=== PATIENT | female | born 1995 | race Caucasian/White ===

== ENCOUNTER 2019-06-09 16:39 | Emergency (ER) | payer MEDICAID, OTHER ==
[~2019-06-09] VITALS: Ht 162.6 cm; Wt 104.0 kg
[~2019-06-09 16:39] MED LIST: CARI350T PO; CEPH500T PO; FAMO-128 PO; ONDA4TAB12 PO; OXYC-145 PO
[2019-06-09] MEDS ORDERED: METO-292 PO (17:07)
[2019-06-09] MEDS ORDERED: DOXY1TAB3 PO ×2 (17:07→18:39)
[2019-06-09] MEDS ORDERED: ONDA4TAB6 PO (17:07)
[2019-06-09 17:20] LABS: BASOPHILS # (AUTO) 0.1 X10'3 (0-0.2); BASOPHILS % (AUTO) 0.6 % (0-1); EOSINOPHILS % (AUTO) 0.3 % (0-6); HEMOGLOBIN 14.5 g/dl (12.0-16.0); LYMPHOCYTES # (AUTO) 2.9 X10'3 (1.1-4.8); LYMPHOCYTES % (AUTO) 19.9 % (21-51); MEAN CORPUSCULAR HEMOGLOBIN 28.7 PG (27.0-31.0); MEAN CORPUSCULAR HGB CONC 34.6 g/dL (33.0-36.5); MEAN CORPUSCULAR VOLUME 83.1 FL (78-98); MONOCYTES # (AUTO) 0.6 X10'3 (0-0.9); NEUTROPHILS # (AUTO) 10.8 X10'3 (1.8-7.7); NEUTROPHILS % (AUTO) 75.2 % (42-75); PLATELET COUNT 281 X10'3 (140-440); RED BLOOD COUNT 5.05 X10'6 (4.20-5.60); RED CELL DISTRIBUTION WIDTH 13.2 % (11.5-14.5); WHITE BLOOD COUNT 14.3 X10'3 (4.5-11.0)
[2019-06-09 17:23] LABS: CLARITY,URINE SLIGHTLY CLOUDY (Clear); COLOR,URINE YELLOW (Yellow); GLUCOSE, URINE NEGATIVE (Neg); KETONES,URINE 40 mg/dl (Neg); LEUKOCYTE ESTERASE ,URINE MODERATE (Neg); NITRITES, URINE NEGATIVE (Neg); OCCULT BLOOD,URINE TRACE-INTACT (Neg); PROTEIN,URINE NEGATIVE (Neg); UROBILINOGEN,URINE 0.2 E.U/dL (0.2-1.0)
[2019-06-09 17:27] LABS: UA COLLECTION TYPE CLN CATCH MIDSTREAM
--- NOTE | 2019-06-09 17:27 | NUR ---
MEDICAL RECORD RELEASE HAS BEEN FAXED TO [facility]
[2019-06-09 17:28] LABS: RBC,URINE 0-2 /HPF (0-2); WBC,URINE TNTC /HPF (0-4)
[2019-06-09 17:29] LABS: ALANINE AMINOTRANSFERASE 30 U/L (12-78); ALBUMIN 3.7 G/DL (3.4-5.0); ALBUMIN/GLOBULIN RATIO 0.8 (1.1-1.5); ALKALINE PHOSPHATASE 85 IU/L (46-116); ANION GAP 16 (8-16); ASPARTATE AMINO TRANSFERASE 18 U/L (10-37); BILIRUBIN,TOTAL 0.5 MG/DL (0.1-1.0); BLOOD UREA NITROGEN 12 MG/DL (7-18); BUN/CREATININE RATIO 16.7 (6.6-38.0); CALCIUM 9.3 MG/DL (8.5-10.1); CHLORIDE 99 MMOL/L (99-107); CREATININE 0.72 MG/DL (0.40-0.90); GLUCOSE 85 MG/DL (70-104); POTASSIUM 3.6 MMOL/L (3.5-5.1); SODIUM 134 MMOL/L (135-145); TOTAL CARBON DIOXIDE 19.3 MMOL/L (24-32); TOTAL PROTEIN 8.2 G/DL (6.4-8.2); eGFR > 90 ML/MIN
[2019-06-09 17:29] LABS: BACTERIA,URINE 3+ /HPF (Neg); MUCUS STRANDS NONE SEEN /LPF (Neg); SQUAMOUS EPITHELIAL CELL,UR FEW /LPF (FEW)
[2019-06-09 17:50] LABS: LIPASE 83 U/L (73-393)
[2019-06-09 17:51] LABS: BETA HCG,QUANTITATIVE 82534 mIU/ml
--- NOTE | 2019-06-09 18:24 | NUR ---
PT UPSET, WANTS IV FLUIDS, NO NEW ORDERS BY DR. RAMIREZ IF ORTHO STATICS WITHIN NORMAL LIMITS.
[2019-06-09] MEDS ORDERED: normal saline 1000ML IV soln IVB ONE (18:40)
[2019-06-09] MEDS ORDERED: dextrose 5%-normal saline 1,000 ML IV ONE ×2 (18:45)
--- NOTE | 2019-06-09 19:00 | NUR ---
Patient is warm and dry. Establishing IV with bolus. Patient denies discomfort. Some nausea without emesis. IV to be changed from NS to D5/NS, a one litre bolus. Patient is cooperative and in no distress.
--- NOTE | 2019-06-09 19:28 | NUR ---
IV is established and running. Patient tollerated well.
[2019-06-09 20:35] VITALS: BP 115/51
--- NOTE | 2019-06-15 08:57 | NUR ---
PT CALLED X3 REGARDING LAB RESULTS, NO ANSWER AND UNABLE TO LEAVE [facility] [place]. LETTER SENT TO PT'S LISTED ADDDRESS.
--- NOTE | 2019-06-23 17:44 | NUR ---
PT RECEIVED LETTER REGARDING LAB RESULTS AND CALLED BACK. PT NOTIFIED THAT SHE HAS A UTI REQUIRING ABX, MACROBID 100MG PO BID x7 DAYS. PT REGUESTED THAT ABX BE CALLED INTO [facility] IN [place]. RX FOR MACROBID CALLED INTO [facility] IN [place] PT REQUESTED
== END 2019-06-09 20:37 | disposition home or self-care (01) ==
LOC: ER 16:40
DX: O21.0 Mild hyperemesis gravidarum (principal); O99.611 Diseases of the digestive system complicating pregnancy, first trimester; K21.9 Gastro-esophageal reflux disease without esophagitis; Z87.442 Personal history of urinary calculi; Z90.49 Acquired absence of other specified parts of digestive tract; Z3A.10 10 weeks gestation of pregnancy; Z88.1 Allergy status to other antibiotic agents; Z88.8 Allergy status to other drugs, medicaments and biological substances; Z79.899 Other long term (current) drug therapy
CPT/HCPCS: 36415; 80053; 81001; 83690; 84702; 85025; 87077; 87088; 87186; 96360; 99284; J7042; 99283

== ENCOUNTER 2022-11-21 17:59 | Emergency (ER) | payer MEDICAID ==
[~2022-11-21] VITALS: Ht 162.6 cm; Wt 98.0 kg
[~2022-11-21 17:59] MED LIST changes: +DOXY1TAB3 PO; +METO-292 PO; +ONDA4TAB6 PO
[2022-11-21 20:30] VITALS: BP 122/91
[2022-11-21] MEDS ORDERED: diphenhydrAMINE 25mg capsule PO ONE (22:20)
[2022-11-21] MEDS ORDERED: famotidine 20mg tablet PO ONE (22:20)
[2022-11-21] MEDS ORDERED: FAMO-128 PO (22:24)
== END 2022-11-21 22:31 | disposition home or self-care (01) ==
LOC: ER 18:00
DX: L25.0 Unspecified contact dermatitis due to cosmetics (principal); K21.9 Gastro-esophageal reflux disease without esophagitis; Z87.442 Personal history of urinary calculi; Z88.1 Allergy status to other antibiotic agents; Z88.0 Allergy status to penicillin; Z79.899 Other long term (current) drug therapy; Z79.1 Long term (current) use of non-steroidal anti-inflammatories (NSAID); Z79.2 Long term (current) use of antibiotics; Z88.8 Allergy status to other drugs, medicaments and biological substances
CPT/HCPCS: 99283; Q0163

== ENCOUNTER 2022-11-24 06:33 | Emergency (ER) | payer MEDICAID ==
[~2022-11-24] VITALS: Ht 162.6 cm; Wt 95.0 kg
[2022-11-24 06:42] VITALS: BP 122/77
[2022-11-24] MEDS ORDERED: BENZ-38 PO (07:13)
[2022-11-24] MEDS ORDERED: AZIT250T2 PO (08:08)
== END 2022-11-24 07:47 | disposition home or self-care (01) ==
LOC: ER 06:34
DX: J02.9 Acute pharyngitis, unspecified (principal); K21.9 Gastro-esophageal reflux disease without esophagitis; Z87.442 Personal history of urinary calculi; Z90.49 Acquired absence of other specified parts of digestive tract; Z88.1 Allergy status to other antibiotic agents; Z88.0 Allergy status to penicillin; Z79.899 Other long term (current) drug therapy; Z79.2 Long term (current) use of antibiotics; Z79.1 Long term (current) use of non-steroidal anti-inflammatories (NSAID)
CPT/HCPCS: 87880; 99283

== ENCOUNTER 2024-01-08 02:51 | Emergency (ER) | payer MEDICAID ==
[~2024-01-08] VITALS: Ht 160 cm; Wt 106.8 kg
[2024-01-08] MEDS ORDERED: HYDR-3965 PO (04:20)
[2024-01-08] MEDS ORDERED: CLIN-197 PO (04:20)
[2024-01-08 04:39] VITALS: BP 128/84; PULSE 72; RESP 17; TEMP 97.7; O2SAT 98
== END 2024-01-08 04:40 | disposition home or self-care (01) ==
LOC: ER 02:51
DX: K02.9 Dental caries, unspecified (principal); K04.7 Periapical abscess without sinus; K21.9 Gastro-esophageal reflux disease without esophagitis; Z88.1 Allergy status to other antibiotic agents; Z88.0 Allergy status to penicillin; Z79.899 Other long term (current) drug therapy
CPT/HCPCS: 99283

== ENCOUNTER 2024-07-22 12:07 | Emergency (ER) | payer MEDICAID ==
[~2024-07-22] VITALS: Ht 160 cm; Wt 111.4 kg
[~2024-07-22 12:07] MED LIST changes: +ONDA-243 PO; -ONDA4TAB12 PO
[2024-07-22 12:19] VITALS: BP 129/80; PULSE 91; RESP 16; TEMP 98.5; O2SAT 98
[2024-07-22 12:52] LABS: BASOPHILS % (AUTO) 0.2 % (0-1); EOSINOPHILS # (AUTO) 0.1 X10'3 (0-0.9); EOSINOPHILS % (AUTO) 1.3 % (0-6); HEMATOCRIT 41.9 % (35.0-45.0); HEMOGLOBIN 14.5 g/dl (12.0-16.0); LYMPHOCYTES # (AUTO) 2.5 X10'3 (1.1-4.8); LYMPHOCYTES % (AUTO) 24.5 % (21-51); MEAN CORPUSCULAR HEMOGLOBIN 29.6 PG (27.0-31.0); MEAN CORPUSCULAR HGB CONC 34.6 g/dL (33.0-36.5); MEAN CORPUSCULAR VOLUME 85.3 FL (78-98); MEAN PLATELET VOLUME 7.9 FL (7.4-10.4); MONOCYTES # (AUTO) 0.3 X10'3 (0-0.9); MONOCYTES % (AUTO) 3.4 % (2-12); NEUTROPHILS # (AUTO) 7.2 X10'3 (1.8-7.7); NEUTROPHILS % (AUTO) 70.6 % (42-75); PLATELET COUNT 280 X10'3 (140-440); RED BLOOD COUNT 4.91 X10'6 (4.20-5.60); WHITE BLOOD COUNT 10.2 X10'3 (4.5-11.0)
[2024-07-22 13:05] LABS: ALANINE AMINOTRANSFERASE 35 U/L (12-78); ALBUMIN 3.9 G/DL (3.4-5.0); ALBUMIN/GLOBULIN RATIO 0.9 (1.1-1.5); ALKALINE PHOSPHATASE 70 IU/L (46-116); ANION GAP 13 (8-16); ASPARTATE AMINO TRANSFERASE 25 U/L (10-37); BILIRUBIN,TOTAL 0.3 MG/DL (0.1-1.0); BLOOD UREA NITROGEN 15 MG/DL (7-18); BUN/CREATININE RATIO 17.6 (10.0-20.0); CHLORIDE 104 MMOL/L (99-107); CREATININE 0.85 MG/DL (0.40-0.90); GLUCOSE 117 MG/DL (70-104); POTASSIUM 3.7 MMOL/L (3.5-5.1); SODIUM 137 MMOL/L (135-145); TOTAL CARBON DIOXIDE 20.5 MMOL/L (24-32); TOTAL PROTEIN 8.1 G/DL (6.4-8.2); eCRCL 81 ML/MIN; eGFR 79 ML/MIN
[2024-07-22 14:28] LABS: PROTHROMBIN TIME 10.9 SECONDS (9.0-12.0)
[2024-07-22 14:49] LABS: BILIRUBIN,URINE NEGATIVE (Neg); CLARITY,URINE CLEAR (Clear); COLOR,URINE YELLOW (Yellow); GLUCOSE, URINE NEGATIVE (Neg); KETONES,URINE NEGATIVE (Neg); LEUKOCYTE ESTERASE ,URINE TRACE (Neg); NITRITES, URINE NEGATIVE (Neg); OCCULT BLOOD,URINE NEGATIVE (Neg); PROTEIN,URINE NEGATIVE (Neg); UROBILINOGEN,URINE 0.2 E.U/dL (0.2-1.0)
[2024-07-22] MEDS ORDERED: dexamethasone sod phosphate 10mg/ml inj IM STA (14:52)
[2024-07-22] MEDS ORDERED: diphenhydrAMINE 50 mg/ml inj IM ONE (14:55)
[2024-07-22] MEDS ORDERED: famotidine 20mg tablet PO ONE (14:55)
[2024-07-22 14:58] LABS: SQUAMOUS EPITHELIAL CELL,UR FEW /LPF (FEW); UA COLLECTION TYPE NON-SPECIFIED
[2024-07-22 14:59] LABS: BACTERIA,URINE FEW /HPF (Neg); RBC,URINE 0-2 /HPF (0-2); WBC,URINE 0-4 /HPF (0-4)
== END 2024-07-22 15:08 | disposition left against medical advice (07) ==
LOC: ER 12:07
DX: R21 Rash and other nonspecific skin eruption (principal); R79.1 Abnormal coagulation profile; Z53.21 Procedure and treatment not carried out due to patient leaving prior to being seen by health care provider
CPT/HCPCS: 36415; 80053; 81001; 85025; 85610; 87088